=== PATIENT | male | born 1980 | race Caucasian/White ===

== ENCOUNTER 2016-02-24 22:30 | Emergency (ER) | payer SELFPAY ==
[~2016-02-24] VITALS: Ht 177.8 cm; Wt 78.0 kg
[2016-02-24 22:32] VITALS: BP 148/67; PULSE 72; RESP 18; TEMP 98.5; O2SAT 99
[2016-02-24] MEDS ORDERED: HYDROmorphone HCL PF 1 MG/ML VIAL IM ONE (23:15)
[2016-02-24] MEDS ORDERED: ONDANSETRON HCL 4 MG/2 ML VIAL IM ONE (23:15)
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
[2016-02-25] MEDS ORDERED: HYDR-3533 PO (00:29)
[2016-02-25] MEDS ORDERED: AMOX500C PO (00:29)
[2016-02-25] MEDS ORDERED: TETANUS/DIPHTHERIA TOXOID ADULT 0.5 ML VIAL IM ONE (00:30)
[2016-02-25] MEDS ORDERED: ceFAZolin 2 GM PREMIX 50 ML IV ONE (00:30)
--- NOTE | 2016-02-25 01:09 | PD ---
Physical Exam Date Seen by Provider: Feb 25, 2016 Time Seen by Provider: 01:06 Narrative Skin: Patient is a 2.5 cm laceration to the left cheek no foreign body. Neurovascular intact. Data Data Last Documented VS Vital Signs Date Time Temp Pulse Resp B/P Pulse Ox O2 Delivery O2 Flow Rate FiO2 02/24/16 22:32 98.5 72 18 148/[address] Brain W/O Iv Contrast(Rout) (02/24/16 23:05) Ct Facial Bones W/O Iv Cont (02/24/16 23:07) Hydromorphone Pf Inj (Dilaudid Pf Inj) (02/24/16 23:15) Ondansetron Inj (Zofran Inj) (02/24/16 23:15) Cefazolin 2 Gm Premix (Ancef 2 Gm Premix (02/25/16 00:30) Tetanus/Diphtheria Tox Adult (Tetanus/Di (02/25/16 00:30) MDM Medical Record Reviewed: Yes Supervised Visit with OSKAR: Yes Interpretation(s) Last [address] 02/24/162306 Signed Impressions: Service Date/Time: Wednesday, February 24, 2016 23:23 - CONCLUSION: Left orbitofacial or fractures. Brandon Walker MD Head CT 02/24/16 2309 Signed Impressions: Service Date/Time: Wednesday, February 24, 2016 23:23 - CONCLUSION: No acute intracranial injury. Brandon Walker MD Differential Diagnosis MDM: High Differential diagnoses: Fracture, sprain, strain, dislocation, contusion, neurovascular injury Narrative Course Patient's wound is closed with Dermabond Procedures Procedure Narrative LACERATION LOCATION: Left cheek LENGTH: 2.5 cm NUMBER OF STITCHES/DUNG: Not applicable REPAIR: The area of the laceration was prepped with Betadine and sterilely draped. The wound was copiously irrigated and explored without evidence of foreign body, tendon injury or neurovascular injury. The wound was closed using Dermabond. This was a simple single layer repair. The patient was advised to keep the dressing clean and dry. Patient tolerated the procedure well. Diagnosis Primary Impression: UNSP FRACTURE OF FACIAL BONES, INIT FOR CLOS FX Referrals: Delta Zepeda DMD Patient Instructions: General Instructions, Facial Fracture (ED) Departure Forms: Tests/Procedures Additional Instruction: Rest. Ice pack tonight. Tylenol or Advil for pain. Daily wound care with soap, water, Neosporin. Dermabond instructions Sunscreen and mederma for 6 months. Return to the ER for any problems. Med/Other Pt SpecificInfo: Wound Care Scripts Hydrocodone-Acetaminophen (Lortab)5-325 Mg Tab1-2 Tab PO Q6H PRN (PAIN) #15 TAB Ref 0 Prov:Julita Oliveira MD 02/25/16 Amoxicillin 500 Mg Dty146 Mg PO TID #21 CAP Ref 0 Prov:Julita Oliveira MD 02/25/16 Disposition: 01 DISCHARGE HOME Condition: Stable Austin Caldera Feb 25, 2016 01:09
== END 2016-02-25 09:29 | disposition home or self-care (01) ==
LOC: NEPC 22:30 → NEPA 02-25 09:29
DX: S02.40FA Zygomatic fracture, left side, initial encounter for closed fracture (principal); S02.82XA Fracture of other specified skull and facial bones, left side, initial encounter for closed fracture; S02.40DA Maxillary fracture, left side, initial encounter for closed fracture; Z72.0 Tobacco use; Z23 Encounter for immunization; Y00.XXXA Assault by blunt object, initial encounter
CPT/HCPCS: 12011; 70450; 70486; 90471; 90714; 96372; 96374; 99284; J0690; J1170; J2405

== ENCOUNTER 2016-09-15 10:14 | Emergency (ER) | payer SELFPAY ==
[~2016-09-15] VITALS: Ht 180.3 cm; Wt 76.0 kg
[~2016-09-15 10:14] MED LIST: AMOX500C PO; HYDR-3533 PO
[2016-09-15 10:16] VITALS: BP 117/78; PULSE 113; RESP 22; TEMP 98.5; O2SAT 98
[2016-09-15 10:58] LABS: BACTERIA, URINE OCC /hpf; BLOOD, URINE NEG (NEG); COMMENT (UR) CULTURE INDICATED; CULTURE IF INDICATED CULTURE INDICATED; GLUCOSE,URINE NEG (NEG); KETONE, URINE NEG (NEG); MUCUS URINE FEW /lpf (OCC); NITRITE,URINE NEG (NEG); PH, URINE 6.5 (5.0-8.5); SQUAMOUS EPITHELIAL CELL URINE <1 /hpf (0-5); URINE COLOR YELLOW (YELLW/STRAW)
--- NOTE | 2016-09-15 11:32 | PD ---
HPI Chief Complaint: Complaint Time Seen by Provider: 11:32 Travel History International Travel<30 days: No Contact w/Intl Traveler<30days: No Traveled to known affect area: No History of Present Illness HPI 35 YO M presents to the ED for evaluation of 1 week history of dysuria, decreased urinary volumes, straining to begin urinary stream. Patient denies fever, chills, nausea, vomiting, hematuria, back pain, rectal pain, penile pain , penile discharge, unprotected sex. He endorses abdominal pain over the last few days which he associates with straining to begin his urine stream. Endorses normal daily bowel movements. He treated by increasing fluid intake. PFSH Social History Alcohol Use: No Tobacco Use: Yes Substance Use: No Allergies-Medications (Allergen,Severity, Reaction): Coded Allergies: No Known Allergies (Unverified , 09/15/16) Reported Meds & Prescriptions Reported Meds & Active Scripts Active Bactrim DS (Sulfamethoxazole-Trimethoprim) 800-160 Mg Tab 1 Tab PO BID 14 Days Pyridium (Phenazopyridine HCl) 100 Mg Tab 100 Mg PO Q8H PRN Review of Systems Except as stated in HPI: all other systems reviewed are Neg Physical Exam Narrative GENERAL: Well-nourished, well-developed white male in no acute distress. SKIN: Focused skin assessment warm/dry. HEAD: Normocephalic. EYES: No scleral icterus. No injection or drainage. NECK: Supple, trachea midline. No JVD or lymphadenopathy. CARDIOVASCULAR: Regular rate and rhythm without murmurs, gallops, or rubs. RESPIRATORY: Breath sounds clear and equal bilaterally. No accessory muscle use. GASTROINTESTINAL: Abdomen soft, non-tender, nondistended. Active bowel sounds. GENITOURINARY: Circumcised. Testes descended bilaterally without evidence of rotation. No lesions or erythema. No urethral discharge. No perineal tenderness. MUSCULOSKELETAL: No cyanosis, or edema. BACK: Nontender without obvious deformity. Mild left + CVA tenderness. Data Data Last Documented VS Vital Signs Date Time Temp Pulse Resp B/P Pulse Ox O2 Delivery O2 Flow Rate FiO2 09/15/16 13:28 75 16 112/78 99 09/15/16 10:16 98.5 Room Air Orders Urinalysis - C+S If Indicated (09/15/16 10:22) Urine Culture (09/15/16 10:30) Sulfamet-Trimeth Ds 800-160 Mg (Bactrim (09/15/16 11:45) Bladder Scan PRN (09/15/16 11:43) Phenazopyridine (Pyridium) (09/15/16 11:45) Labs Laboratory Tests Test 09/15/16 10:30 Urine Color YELLOW Urine Turbidity CLEAR Urine pH 6.5 Urine Specific [place] 1.018 Urine Protein NEG mg/dL Urine Glucose (UA) NEG mg/dL Urine Ketones NEG mg/dL Urine Occult Blood NEG Urine Nitrite NEG Urine Bilirubin NEG Urine Urobilinogen 4.0 MG/DL Urine Leukocyte Esterase MOD Urine RBC 2 /hpf Urine WBC 27 /hpf Urine Squamous Epithelial <1 /hpf Cells Urine Bacteria OCC /hpf Urine Mucus FEW /lpf Microscopic Urinalysis Comment CULTURE INDICATED MDM Medical Decision Making Medical Screen Exam Complete: Yes Emergency Medical Condition: Yes Differential Diagnosis Cystitis versus pyelonephritis versus urethritis versus urinary tract obstruction versus prostatitis versus epididymitis versus other Narrative Course 35 YO M presents to the ED for evaluation of 1 week history of dysuria, decreased urinary volumes, straining to begin urinary stream. Patient denies fever, chills, nausea, vomiting, back pain, rectal pain, penile pain, penile discharge, unprotected sex. Vitals reviewed. Patient is tachycardic in triage, resolved in the treatment area. Physical exam reveals mild right CVA TTP, otherwise unremarkable. UA with moderate leukocyte esterase, occasional bacteria , 27 wbc's. Patient was administered by mouth Pyridium and Bactrim DS in the ED. Bladder scan reveals 400CC urine, ~190 post void. There is no acute urinary tract obstruction. We'll treat for UTI. Patient's prescribed Bactrim twice a day 14 days, Pyridium 3 times a day 2 days. He is instructed to follow-up with the urologist, return for worsening symptoms. He is stable and discharged home. Diagnosis Primary Impression: Urinary tract infection Qualified Code: N39.0 - Urinary tract infection without hematuria, site unspecified Referrals: Primary Care Physician Patient Instructions: General Instructions, Urinary Tract Infection in Men (ED) Additional Instructions: Rest, hydrate. Take all medication as prescribed, even if your symptoms resolve. Bactrim is free at [facility] (now [employer]). Pyridium will turn your urine dark orange. This is an expected side effect and not dangerous. Follow-up with her primary care provider. Return to the ED for worsening symptoms or for any urgent or emergent medical condition. Med/Other Pt SpecificInfo: Prescription(s) given Scripts Sulfamethoxazole-Trimethoprim (Bactrim DS)800-160 Mg Tab1 Tab PO BID 14 Days Ref 0 Prov:Rudy Tran MD 09/15/16 Phenazopyridine (Pyridium)100 Mg Hgw310 Mg PO Q8H PRN (DYSURIA) #6 TAB Ref 0 Prov:Rudy Tran MD 09/15/16 Disposition: 01 DISCHARGE HOME Condition: Stable Nguyen Delgado Sep 15, 2016 11:32
[2016-09-15] MEDS ORDERED: PHENAZOPYRIDINE HCL 200 MG TAB PO ONE (11:45)
[2016-09-15] MEDS ORDERED: SULFAMETHOXAZOLE-TRIMETHOPRIM DS 800-160 MG TAB PO ONE (11:45)
[2016-09-15] MEDS ORDERED: BACT800T5 PO (13:16)
[2016-09-15] MEDS ORDERED: PHEN0.4T PO (13:16)
[2016-09-15 13:28] VITALS: BP 112/78
== END 2016-09-15 13:38 | disposition home or self-care (01) ==
LOC: NEPD 10:14
DX: N39.0 Urinary tract infection, site not specified (principal); F17.290 Nicotine dependence, other tobacco product, uncomplicated
CPT/HCPCS: 81001; 87086; 99283